=== PATIENT | female | born 1945 | race Caucasian/White ===

== ENCOUNTER 2020-07-31 08:51 | Day surgery (SDC) | payer MEDICARE ==
[2020-07-29 13:46] LABS: BASOPHILS % (AUTO) 1 % (0-1); EOSINOPHILS % (AUTO) 2 % (1-7); LYMPHOCYTES % (AUTO) 34 % (22-44); MEAN CORPUSCULAR HEMOGLOBIN 31.3 pg (27.0-34.8); MEAN CORPUSCULAR HGB CONC 33.4 g/dL (32.4-35.8); MEAN PLATELET VOLUME 7.7 fL (7.4-10.4); MONOCYTES % (AUTO) 11 % (2-9); NEUTROPHILS % (AUTO) 52 % (42-75); PLATELET COUNT 162 x10^3/uL (130-400); RED CELL DISTRIBUTION WIDTH 13.5 % (9.6-15.2)
[2020-07-29 13:52] LABS: MD NO
[2020-07-29 13:53] LABS: ALANINE AMINOTRANSFERASE 28 U/L (12-78); ALBUMIN 3.8 g/dL (3.4-5.0); CALCIUM 9.3 mg/dL (8.5-10.1); CHLORIDE 108 mmol/L (98-107)
[2020-07-29 13:56] LABS: ALKALINE PHOSPHATASE 67 U/L (45-117); BILIRUBIN,TOTAL 0.9 mg/dL (0.2-1.0); CREATININE 0.95 mg/dL (0.55-1.02); TOTAL PROTEIN 7.1 g/dL (6.4-8.2)
[2020-07-29 14:02] LABS: ANION GAP 4 mmol/L (5-15)
[~2020-07-31] VITALS: Ht 160 cm; Wt 86.0 kg
[~2020-07-31 08:51] MED LIST: ACET650S21 PO; ACETAMINOPHEN 325 MG TABLET PO PRN; ASPI-496 PO; CALC500T93 PO; CHOL10003 PO; CHOL2000 PO; ENOX100S5 SQ; ESCI10TA PO; ESCI10TA10 PO; GLIP5TAB10 PO; HYDR-3240 PO; INSU100I29 SQ-INSULIN; IRBE150T9 PO; KETOROLAC 30 MG/1 ML IVPush SCH; LORA2VIA6 IVPush; LOSA25TA2 PO; MERO1VIA24 IV; METF-754 PO; METF500T17 PO; METR500T PO; MICA100V3 IV; MULT-26 PO; NYST1000 PO; OXYcodone 5 MG/5 ML ORAL.SOL UDC PO PRN; PANT40TA6 PO; PANT40VI IVPush; PROMETHAZINE 25 MG/ML, 1ML IM PRN; RISP1TAB45 PO; SIMV10TA18 PO; SPIR1TAB3 PO; SPIRONOLACT/HCTZ 25/25MG TABLET PO SCH; TELM40TA PO; THIA50TA4 PO; TURM500C4 PO; WARF2.5T2 PO; WARF5TAB2 PO; metFORMIN XR 500 MG TAB.ER.24H PO SCH; morphine SULFATE 10 MG/ML, 1ML IVPush PRN
[2020-07-31] MEDS ORDERED: ESCITALOPRAM 10MG TABLET PO SCH (09:00)
[2020-07-31] MEDS ORDERED: PANTOPRAZOLE 40MG TABLET PO SCH (09:00)
[2020-07-31] MEDS ORDERED: HYDR-3237 PO (09:52)
[2020-07-31 09:54] VITALS: BP 144/71
[2020-07-31] MEDS ORDERED: LACTATED RINGERS 1,000 ML IV SCH (10:00)
[2020-07-31] MEDS ORDERED: CHLORHEXIDINE 15 ML UDC MM ONE (10:00)
[2020-07-31] MEDS ORDERED: BUPIVACAINE/PF 0.5% ONE (10:18)
[2020-07-31] MEDS ORDERED: MIDAZOLAM 1 MG/ML, 2ML ONE (10:56)
[2020-07-31] MEDS ORDERED: FENTANYL PF 100 MCG/2ML ONE ×2 (10:56→12:38)
[2020-07-31] MEDS ORDERED: PROPOFOL 10 MG/ML, 20ML ONE (11:22)
[2020-07-31] MEDS ORDERED: ONDANSETRON 2MG/ML, 2ML ONE (11:22)
[2020-07-31] MEDS ORDERED: CEFAZOLIN 1,000 MG ONE (11:22)
[2020-07-31] MEDS ORDERED: DEXAMETHASONE 4 MG/ML, 1ML ONE (11:22)
[2020-07-31] MEDS ORDERED: MEPERIDINE/PF 25MG/0.5ML IVPush PRN (12:00)
[2020-07-31] MEDS ORDERED: ACETAMINOPHEN 325 MG TABLET PO PRN (12:00)
[2020-07-31] MEDS ORDERED: FENTANYL PF 100 MCG/2ML IV PRN (12:00)
[2020-07-31] MEDS ORDERED: KETOROLAC 30 MG/1 ML IV PRN (12:00)
[2020-07-31] MEDS ORDERED: DIAZEPAM 5 MG/ML, 2ML IVPush PRN (12:00)
[2020-07-31] MEDS ORDERED: ALBUTEROL SULFATE 2.5 MG/3 ML NPPB PRN (12:00)
[2020-07-31] MEDS ORDERED: PROMETHAZINE 25 MG/ML, 1ML IV PRN (12:00)
[2020-07-31] MEDS ORDERED: LABETALOL 5MG/ML, 20ML IV PRN (12:00)
[2020-07-31] MEDS ORDERED: HYDROmorphone 2 MG/ML, 1ML IVPush PRN (12:00)
[2020-07-31] MEDS ORDERED: hydrALAzine 20 MG/ML, 1ML IV PRN (12:00)
[2020-07-31] MEDS ORDERED: OXYcodone 5 MG/5 ML ORAL.SOL UDC PO PRN (12:00)
[2020-07-31] MEDS ORDERED: KETOROLAC 30 MG/1 ML ONE (12:38)
[2020-07-31] MEDS ORDERED: HYDROcodone/APAP 7.5-325MG/15ML UDC ONE (12:49)
[2020-07-31] MEDS ORDERED: HYDROcodone/APAP 7.5-325MG/15ML UDC PO PRN (13:00)
[2020-07-31] MEDS ORDERED: SIMVASTATIN 10 MG TABLET PO SCH (21:00)
== END 2020-07-31 14:10 | disposition home or self-care (01) ==
LOC: OUT 08:51
PROVIDERS: ATTEND Orthopaedic Surgery
DX: S83.281A Other tear of lateral meniscus, current injury, right knee, initial encounter (principal); S83.241A Other tear of medial meniscus, current injury, right knee, initial encounter; M25.561 Pain in right knee; I10 Essential (primary) hypertension; E11.9 Type 2 diabetes mellitus without complications; M19.90 Unspecified osteoarthritis, unspecified site; E78.5 Hyperlipidemia, unspecified; M17.11 Unilateral primary osteoarthritis, right knee; Z72.89 Other problems related to lifestyle; Z88.5 Allergy status to narcotic agent; Z88.8 Allergy status to other drugs, medicaments and biological substances; X58.XXXA Exposure to other specified factors, initial encounter; Y93.89 Activity, other specified; Y92.89 Other specified places as the place of occurrence of the external cause; Y99.8 Other external cause status; Z79.899 Other long term (current) drug therapy; Z82.49 Family history of ischemic heart disease and other diseases of the circulatory system; Z20.828 Contact with and (suspected) exposure to other viral communicable diseases
CPT/HCPCS: 29880; 36415; 80053; 82962; 85025; 93005; J1885; J2250; J3010; J7120; U0003; J0690; J1100; J2405; J2704